=== PATIENT | male | born 1955 | race Caucasian/White ===

== ENCOUNTER → 2020-04-16 | Outpatient (CLI) | payer MEDICARE ==
[~2020-04-16] MED LIST: E-Z-GAS II EFFERVESCENT PACKET (SODIUM BICARB./CITRIC ACID/SIMETHICONE) ONE; E-Z-HD 98% w/w 340GM SUSP BTL ONE; E-Z-PAQUE 96% w/w SUSP 176GM BTL ONE
--- NOTE | 2020-06-11 08:35 | REP ---
AIR CONTRAST ESOPHAGRAM: The procedure was performed under the direct supervision of Dr. Costa. The images were reviewed with Dr. Costa. FINDINGS: A single view PA chest x-ray is submitted as a analytical lab technician film. The superior mediastinal structures are midline. The heart size is within normal limits. The lungs are clear. Liquid barium and gas producing granules were given in the erect position as well as liquid barium in the prone oblique positions in order to perform a double contrast esophagram examination. During the oral and pharyngeal states of deglutition, there is laryngeal penetration as well as nasopharyngeal reflux. Esophageal transport is prompt and efficient and there is no esophagitis, stricture, mucosal ring or hiatal hernia. Gastroesophageal reflux is not demonstrated on this examination. IMPRESSION: There is laryngeal penetration as well as nasopharyngeal reflux. 0.8 minutes of fluoroscopy time was utilized for this procedure. [facility]
== END ==
LOC: M RAD 09:55
PROVIDERS: ATTEND Specialist
DX: J39.2 Other diseases of pharynx (principal); R13.10 Dysphagia, unspecified